=== PATIENT | female | born 1970 | race Caucasian/White ===

== ENCOUNTER 2021-11-11 13:43 | Emergency (ER) | payer OTHER ==
[2021-11-11 14:07] LABS: BASOPHIL 0.6 % (0-2); EOSINOPHIL 1.7 % (0-5); HCT 37.3 % (37.0-47.0); HGB 12.5 g/dl (12.5-16.0); LYMPHOCYTE 24.4 % (15-48); MCH 29.8 pg (25.0-31.0); MCHC 33.5 g/dL (32.0-36.0); MCV 88.8 fL (78.0-100.0); MONOCYTE 5.6 % (0-12); MPV 9.4 fL (6.0-9.5); NEUTROPHIL 66.8 % (41-80); NRBC 0; PLT 325 K/uL (150-400); RDW 12.7 % (11.5-14.0); WBC 7.8 K/uL (4.0-10.5)
[2021-11-11 14:10] LABS: INR 1.06 (0.9-1.2); PROTHROMBIN TIME 13.5 SECONDS (11.9-13.9)
== END 2021-11-11 15:49 | disposition home or self-care (01) ==
LOC: FER 13:43
PROVIDERS: Emergency Medicine
DX: I20.8 Other forms of angina pectoris (principal); R91.1 Solitary pulmonary nodule
CPT/HCPCS: 36415; 71045; 82553; 84484; 85025; 85610; 93005